=== PATIENT | male | born 1985 | race Caucasian/White ===

== ENCOUNTER 2022-11-10 00:06 | Emergency (ER) | payer MEDICAID ==
[~2022-11-10] VITALS: Ht 165.1 cm; Wt 104.3 kg
[2022-11-10] MEDS ORDERED: IBUPROFEN 600 MG TABLET PO ONE (00:30)
[2022-11-10] MEDS ORDERED: IBUPROFEN 600 MG TABLET ONE (00:32)
[2022-11-10] MEDS ORDERED: CYCL10TA9 PO (00:36)
[2022-11-10] MEDS ORDERED: HYDR-4209 PO (00:36)
== END 2022-11-10 00:50 | disposition home or self-care (01) ==
LOC: ER 00:10
DX: M54.50 Low back pain, unspecified (principal); R03.0 Elevated blood-pressure reading, without diagnosis of hypertension; Z87.828 Personal history of other (healed) physical injury and trauma
CPT/HCPCS: A4663